=== PATIENT | female | born 1945 | race Caucasian/White ===

== ENCOUNTER 2017-10-08 11:20 | Emergency (ER) | payer MEDICARE, OTHER ==
[2017-10-08] MEDS ORDERED: Sodium Chloride 0.9% 1,000 ML IV ONE (11:36)
[2017-10-08] MEDS ORDERED: Ondansetron 4 MG/2 ML SDV IV ONE (11:36)
[2017-10-08] MEDS ORDERED: Diltiazem 120 MG Cap.CD PO ONE (12:01)
--- NOTE | 2017-10-08 12:13 | EDM.PDOC ---
ED HPI GENERAL MEDICAL PROBLEM - General Chief Complaint: General Stated Complaint: SICK, HEART MONITOR FOR 4 HRS Time Seen by Provider: 10/08/17 11:45 Source of Information: Reports: Patient History Limitations: Reports: No Limitations - History of Present Illness INITIAL COMMENTS - FREE TEXT/NARRATIVE: This 72 yo female patient reports to the ED due to generalized weakness, nausea , dizziness and fevers for 2 days. The patient reports that she attempted to get into the clinic, but was advised to come to the ED. The patient reports her symptoms started about 3 days ago. The patient reports she has been feeling nauseated and has not taken her prescribed medications for the past 2 days. The patient reports that she has not been eating or drinking normally. The patient reports dizziness when walking around. The patient reports that she was feeling very strange yesterday (seeing things and feeling "like I was coming out of anesthesia"). The patient reports she was "peeing a river" yesterday. The patient also reports some lower back pain. The patient was seen by her chiropractor for lower back pain earlier this week. The patient reports she enjoys being outdoors working in the garden. The patient reports her neighbor mentioned that she may have West Nile. The patient reports that she had a rash on her abdomen last week and has had the feelings of fevers this week. Onset Date: 10/05/17 Duration: Intermittent Location: Reports: Generalized Quality: Reports: Other Severity: Moderate Improves with: Reports: None Worsens with: Reports: None Associated Symptoms: Reports: Fever/Chills, Nausea/Vomiting, Weakness - Related Data Allergies Allergy/AdvReac Type Severity Reaction Status Date / Time nitroglycerin Allergy Nausea Verified 10/08/17 11:32 propoxyphene HCl Allergy Nausea Verified 10/08/17 11:32 [From [facility]] Home Meds: Home Meds Diltiazem HCl [Cardizem] 120 mg PO DAILY 07/31/13 [History] Metoprolol Succinate [Toprol XL 100mg] 100 mg PO DAILY 07/31/13 [History] Aspirin [Halfprin] 81 mg PO DAILY 11/16/14 [History] Fish Oil/DHA/EPA [Fish Oil 1,200 MG] 1,200 mg PO DAILY 11/16/14 [History] Isosorbide Mononitrate [Isosorbide Mononitrate ER] 15 mg PO DAILY 11/16/14 [ History] Valsartan 160 mg PO DAILY 11/16/14 [History] Ezetimibe 10 mg PO DAILY 10/08/17 [History] Past Medical History Musculoskeletal History: Reports: Back Pain, Chronic - Past Surgical History Other Cardiovascular Surgeries/Procedures: 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 ED EXAM, GENERAL - Physical Exam Exam: See Below Exam Limited By: No Limitations General Appearance: Alert, WD/WN, Anxious, Moderate Distress Eye Exam: Bilateral Eye: EOMI, Normal Inspection, PERRL Ears: Normal External Exam, Normal Canal, Hearing Grossly Normal, Normal TMs Nose: Normal Inspection, Normal Mucosa, No Blood Throat/Mouth: Normal Inspection, Normal Lips, Normal Teeth, Normal Gums, Normal Oropharynx, Normal Voice, No Airway Compromise Head: Atraumatic, Normocephalic Neck: Normal Inspection, Supple, Non-Tender, Full Range of Motion Respiratory/Chest: No Respiratory Distress, Lungs Clear, Normal Breath Sounds, No Accessory Muscle Use, Chest Non-Tender Cardiovascular: No Edema, No Gallop, No JVD, No Murmur, No Rub, Bradycardia GI/Abdominal: Normal Bowel Sounds, Soft, Non-Tender, No Organomegaly, No Distention, No Abnormal Bruit, No Mass (Female) Exam: Deferred Rectal (Female) Exam: Deferred Back Exam: Paraspinal Tenderness (generalized lower back pain) Extremities: Normal Inspection, Normal Range of Motion, Non-Tender, Normal Capillary Refill, No Pedal Edema Neurological: Alert, Oriented, CN II-XII Intact, Normal Cognition, Normal Gait, Normal Reflexes, No Motor/Sensory Deficits Psychiatric: Normal Affect, Normal Mood Skin Exam: Warm, Dry, Intact, Normal Color, No Rash Lymphatic: No Adenopathy Course - Vital Signs Last Recorded V/S: Last Vital Signs Temp 36.1 C 10/08/17 11:27 Pulse 49 L 10/08/17 12:30 Resp 20 10/08/17 11:27 BP 151/56 H 10/08/17 12:30 Pulse Ox 99 10/08/17 11:27 - Orders/Labs/Meds Orders: Active Orders 24 hr Category Date Time Status EKG Documentation Completion [RC] URGENT Care 10/08/17 12:00 Active UA W/MICROSCOPIC [URIN] Stat Lab 10/08/17 11:46 Ordered [facility] [REF] Urgent Lab 10/08/17 11:49 Received Labs: Laboratory Tests 10/08/17 10/08/17 10/08/17 Range/Units 11:46 11:49 11:49 WBC 9.7 (5.0-10.0) 10^3/uL RBC 5.24 (4.2-5.4) 10^6/uL Hgb 15.6 (12.0-16.0) g/dL Hct 46.8 (37.0-47.0) % MCV 89.3 (80-100) fL MCH 29.8 (27.0-34.0) pg MCHC 33.3 (33.0-35.0) g/dL Plt Count 275 (150-450) 10^3/uL Neut % (Auto) 65.6 (42.2-75.2) % Lymph % (Auto) 25.5 (20.5-50.1) % [place] % (Auto) 8.2 H (2-8) % Eos % (Auto) 0.5 L (1.0-3.0) % Baso % (Auto) 0.2 (0.0-1.0) % Sodium 139 (135-145) mmol/L Potassium 3.7 (3.6-5.0) mmol/L Chloride 102 (101-111) mmol/L Carbon Dioxide 26.0 (21.0-31.0) mmol/L Anion Gap 14.7 BUN 16 (7-18) mg/dL Creatinine 0.9 (0.6-1.3) mg/dL Est Cr Clr Drug Dosing 53.67 mL/min Estimated GFR (MDRD) > 60 BUN/Creatinine Ratio 17.77 Glucose 104 (74-105) mg/dL Calcium 9.1 (8.4-10.2) mg/dl Total Bilirubin 1.2 H (0.2-1.0) mg/dL AST 30 (10-42) IU/L ALT 26 (10-60) IU/L Alkaline Phosphatase 92 (42-121) IU/L Troponin I (0.00-0.02) ng/ml Total Protein 7.2 (6.7-8.2) g/dl Albumin 4.2 (3.2-5.5) g/dl Globulin 3.0 Albumin/Globulin Ratio 1.40 Urine Color Yellow (YELLOW) Urine Appearance Slightly cloudy (CLEAR) Urine pH 6.0 (5.0-9.0) Ur Specific [place] 1.010 (1.005-1.030) Urine Protein Trace H (NEGATIVE) Urine Glucose (UA) Negative (NEGATIVE) Urine Ketones Negative (NEGATIVE) Urine Occult Blood Moderate H (NEGATIVE) Urine Nitrite Negative (NEGATIVE) Urine Bilirubin Negative (NEGATIVE) Urine Urobilinogen 0.2 (0.2-1.0) mg/dL Ur Leukocyte Esterase Negative (NEGATIVE) Urine RBC 10-20 H /HPF Urine WBC 0-5 (0-5/HPF) /HPF Ur Epithelial Cells Few /HPF Amorphous Sediment Rare (0/HPF) /HPF Urine Bacteria Rare (0-FEW/HPF) /HPF / Range/Units 11:49 WBC (5.0-10.0) 10^3/uL RBC (4.2-5.4) 10^6/uL Hgb (12.0-16.0) g/dL Hct (37.0-47.0) % MCV (80-100) fL MCH (27.0-34.0) pg MCHC (33.0-35.0) g/dL Plt Count (150-450) 10^3/uL Neut % (Auto) (42.2-75.2) % Lymph % (Auto) (20.5-50.1) % [place] % (Auto) (2-8) % Eos % (Auto) (1.0-3.0) % Baso % (Auto) (0.0-1.0) % Sodium (135-145) mmol/L Potassium (3.6-5.0) mmol/L Chloride (101-111) mmol/L Carbon Dioxide (21.0-31.0) mmol/L Anion Gap BUN (7-18) mg/dL Creatinine (0.6-1.3) mg/dL Est Cr Clr Drug Dosing mL/min Estimated GFR (MDRD) BUN/Creatinine Ratio Glucose (74-105) mg/dL Calcium (8.4-10.2) mg/dl Total Bilirubin (0.2-1.0) mg/dL AST (10-42) IU/L ALT (10-60) IU/L Alkaline Phosphatase (42-121) IU/L Troponin I < 0.02 (0.00-0.02) ng/ml Total Protein (6.7-8.2) g/dl Albumin (3.2-5.5) g/dl Globulin Albumin/Globulin Ratio Urine Color (YELLOW) Urine Appearance (CLEAR) Urine pH (5.0-9.0) Ur Specific [place] (1.005-1.030) Urine Protein (NEGATIVE) Urine Glucose (UA) (NEGATIVE) Urine Ketones (NEGATIVE) Urine Occult Blood (NEGATIVE) Urine Nitrite (NEGATIVE) Urine Bilirubin (NEGATIVE) Urine Urobilinogen (0.2-1.0) mg/dL Ur Leukocyte Esterase (NEGATIVE) Urine RBC /HPF Urine WBC (0-5/HPF) /HPF Ur Epithelial Cells /HPF Amorphous Sediment (0/HPF) /HPF Urine Bacteria (0-FEW/HPF) /HPF Meds: Medications Discontinued Medications Generic Name Dose Route Start Last Admin Trade Name Freq PRN Reason Stop Dose Admin Diltiazem HCl 120 mg 10/08/17 12:01 10/08/17 12:30 Cardizem Cd PO 10/08/17 12:02 120 mg ONETIME ONE Administration Sodium Chloride 1,000 mls @ 999 mls/hr 10/08/17 11:36 10/08/17 11:52 Normal Saline IV 10/08/17 12:36 999 mls/hr .BOLUS ONE Administration Ondansetron HCl 4 mg 10/08/17 11:36 10/08/17 11:52 Zofran IV 10/08/17 11:37 4 mg ONETIME ONE Administration Departure - Departure Time of Disposition: 12:45 Disposition: Home, Self-Care 01 Condition: Fair Clinical Impression: Dehydration, Gastroenteritis - Discharge Information *PRESCRIPTION DRUG MONITORING PROGRAM REVIEWED*: Not Applicable *COPY OF PRESCRIPTION DRUG MONITORING REPORT IN PATIENT JOSE: Not Applicable Instructions: Dehydration, Adult, [id number], Viral Gastroenteritis, Adult, [id number] Forms: ED Department Discharge Care Plan Goals: The patient was advised of the examination, lab and EKG results during the visit. The patient was given a liter of IV fluid, IV Zofran and an oral dose of Cardizem CD (120 mg) while in the ED. The patient was discharged with a script for Zofran ODT (4 mg) #20 to take 1 by mouth every 6 hours as needed for nausea. The patient was encouraged to stick to a BRAT diet (bananas, rice, applesauce and toast) with small frequent sips of fluid. [facility] [place] [facility]. The results should not be expected for 4 days. If the patient has any additional symptoms or concerns, the patient should follow-up with her primary care facility. - My Orders Last 24 Hours: My Active Orders 10/08/17 11:46 UA W/MICROSCOPIC [URIN] Stat 10/08/17 11:49 [facility] [REF] Urgent 10/08/17 12:00 EKG Documentation Completion [RC] URGENT - Assessment/Plan Last 24 Hours: My Active Orders 10/08/17 11:46 UA W/MICROSCOPIC [URIN] Stat 10/08/17 11:49 [facility] [REF] Urgent 10/08/17 12:00 EKG Documentation Completion [RC] URGENT
[2017-10-08 12:17] LABS: ANION GAP 14.7; CHLORIDE,CL 102 mmol/L (101-111); SODIUM,NA 139 mmol/L (135-145)
[2017-10-08 13:27] VITALS: BP 153/71
--- NOTE | 2017-10-12 11:36 | EKG ---
10/08/2017 - BRIAN WILEY - FINDINGS: This 12-lead EKG shows a sinus bradycardia with a ventricular rate of 48. Left axis deviation. Normal intervals. No acute ST-segment or T-wave changes. [facility] /[id number]
== END 2017-10-08 13:42 | disposition home or self-care (01) ==
LOC: DL.ED 11:20
DX: K52.9 Noninfective gastroenteritis and colitis, unspecified (principal); E86.0 Dehydration; Z79.82 Long term (current) use of aspirin; Z79.899 Other long term (current) drug therapy; Z88.8 Allergy status to other drugs, medicaments and biological substances
CPT/HCPCS: 36415; 80053; 81001; 84484; 85025; 86788; 93005; 93010; 96361; 96374; 99284; A9270; J2405; J7030

== ENCOUNTER → 2018-06-03 | Outpatient (CLI) | payer MEDICARE, OTHER ==
--- NOTE | 2018-06-03 17:23 | CR ---
Clinical history: 72-year-old 186 pound female intermittent low back pain (2 years) worsening last 2 days with "right lower extremity radiculopathy". Interpretation: Abnormal. Homogeneous age/degenerative or appropriate bone mineral density. No sign of pathologic skeletal lesion, lumbar fracture or dislocation. *Marked intervertebral disc space narrowing with associated endplate sclerosis and hypertrophic marginal spondylosis identified at both the L1-2 and L2-3 levels, upper lumbar spine. Some marginal spondylosis elsewhere but no other intervertebral disc space narrowing. Symmetric spacing normal-appearing SI and hip joints. CONCLUSION: Chronic severe, multilevel, upper lumbar disc disease. Arthritis.
== END ==
LOC: DL.DI 15:30
PROVIDERS: ATTEND Family Medicine
DX: M51.16 Intervertebral disc disorders with radiculopathy, lumbar region (principal); M47.26 Other spondylosis with radiculopathy, lumbar region
CPT/HCPCS: 72100

== ENCOUNTER 2023-10-04 21:57 | Emergency (ER) | payer MEDICARE, OTHER ==
[2023-10-04 22:50] VITALS: BP 142/81; PULSE 64
[2023-10-04] MEDS: Aspirin 81 MG Tab.Chew PO ONE (22:54)
[2023-10-04 22:57] LABS: BASOPHILS PERCENT AUTO 0.4 % (0.0-1.0); EOSINOPHILS PERCENT AUTO 0.6 % (1.0-3.0); HEMATOCRIT 41.7 % (37.0-47.0); HEMOGLOBIN 13.8 g/dL (12.0-16.0); LYMPHOCYTES PERCENT AUTO 15.5 % (20.5-50.1); MEAN CORPUSCULAR HGB CONC 33.1 g/dL (33.0-35.0); MEAN CORPUSCULAR VOLUME 90.7 fL (80-100); MONOCYTES PERCENT AUTO 9.6 % (2-8); NEUTROPHILS PERCENT AUTO 73.9 % (42.2-75.2); PLATELET COUNT,PLT 261 10^3/uL (150-450); WHITE BLOOD CELL COUNT,WBC 11.2 10^3/uL (5.0-10.0)
[2023-10-04 23:21] LABS: MAGNESIUM 2.1 mg/dL (1.8-2.4)
[2023-10-05 00:04] LABS: A/G RATIO 1.2; ALBUMIN 3.6 g/dL (3.4-5.0); ANION GAP 13.3 mEq/L (7-13); BILIRUBIN TOTAL 0.6 mg/dL (0.2-1.0); BUN/CREATININE RATIO 22.1 (No establ ref range); CALCIUM 9.3 mg/dL (8.5-10.1); CREATININE 0.95 mg/dL (0.55-1.02); EST CRCL DRUG DOSING (CG) 46.43 mL/min; POTASSIUM,K 4.3 mmol/L (3.5-5.1); PROTEIN TOTAL,TP 6.7 g/dL (6.4-8.2)
[2023-10-05] MEDS: Sodium Chloride 0.9% 1,000 ML IV ONE (00:34)
[2023-10-05] MEDS: Acetaminophen 325 MG Tab PO ONE (01:14)
== END 2023-10-05 01:52 | disposition home or self-care (01) ==
LOC: DL.ED 21:57
DX: R07.2 Precordial pain (principal); E86.0 Dehydration; Z86.16 Personal history of COVID-19; Z90.710 Acquired absence of both cervix and uterus; Z79.899 Other long term (current) drug therapy; Z79.82 Long term (current) use of aspirin; Z88.8 Allergy status to other drugs, medicaments and biological substances
CPT/HCPCS: 36415; 71045; 80053; 83690; 83735; 84484; 85025; 93005; 96360; 99285-25; A9270-GY; J7030